=== PATIENT | male | born 1940 | race Caucasian/White ===

== ENCOUNTER 2016-08-01 06:40 | Day surgery (SDC) | payer MEDICARE ==
--- NOTE | ~2016-08-01 | OP ---
Record Of Operation [facility] [address] [place]. [address] NAME: PINEDA CHERRY : 40 [place]US : [place] [facility] [place] [id number] AGE: 75 ADM/REG DATE : 08/01/16 MR#: [id number] REPORT SERV DATE: 08/01/16 DICTATED BY: ADALGISA BELTRÁN DATE: 08/01/16 REPORT STATUS : Draft TRANSCRIBED BY: MODL DATE: 08/01/16 DATE OF PROCEDURE: 08/01/2016 PREOPERATIVE DIAGNOSIS: Bladder cancer, recurrent. POSTOPERATIVE DIAGNOSIS: Bladder cancer, recurrent. PROCEDURE PERFORMED: 1. Transurethral resection of bladder tumor (2 to 5 cm). 2. Intraoperative instillation of mitomycin-C (40 mg in 20 mL). ANESTHESIA: General. SPECIMEN: Bladder tumor from the dome, left lateral wall, right trigone, and prostatic urethra. COMPLICATIONS: None. DRAINS: A 22-Australian three-way Harris catheter. INDICATIONS: Mr. Cherry is a 75-year-old, with some gross hematuria and clot retention about four months ago. Small bladder tumors were resected at the dome. He received induction BCG and for surveillance cystoscopy, which showed two areas of suspicious for recurrence at the dome and left lateral wall. He presents for repeat TURBT with mitomycin instillation. TECHNIQUE: Informed consent was obtained. He was brought to the operating room, general anesthesia was administered. Genitals and perineum were prepped and draped in the lithotomy position. Levaquin was administered perioperatively. Urethra was calibrated to 24-Australian and dilated to 28-Australian. Rigid cystoscopy was performed. The urethra was normal. There was minor papillary changes at the verumontanum as well as with the nonobstructive prostate. Bladder was inspected. There was a 3 cm area of edema and erythema, and small papillary changes at the dome. 4 cm area of erythema and heaped up mucosa at the left lateral wall, as well as 0.5 cm papillary tumor at the right trigone. Other tiny papillary tumors were present on the left lateral wall, midline trigone, and right lateral wall. I removed the cystoscope and placed a 26-Australian resectoscope. Bladder tumor at the dome and left lateral wall were resected. Chips were sent separately. I was able identify the ureteral orifices. The small lesions on the trigone right and left lateral goddard were fulgurated. The 0.5 cm lesion on the right trigone/bladder base was resected. Finally, I resected the small area of papillary changes near the verumontanum. I placed a roller ball. All areas of resection were fulgurated for hemostasis. The resectoscope was removed. I placed a 20-Australian two-way Harris catheter with 15 mL in the balloon. I instilled 40 mg of mitomycin-C diluted in 20 mL of sterile water into the bladder. The Harris catheter was plugged and a B and O suppository was given. He was extubated, taken to recovery room in satisfactory condition for the planned one hour intravesical dwell time for the mitomycin. He will be discharged to home with a Harris catheter for three or four more Record Of Operation [address] [address] NAME: PINEDA CHERRY : 40 [place]US : [place] [facility] [place] PAT#: [id number] AGE: 75 ADM/REG DATE : 08/01/16 MR#: [id number] REPORT SERV DATE: 08/01/16 DICTATED BY: ADALGISA BELTRÁN DATE: 08/01/16 REPORT STATUS : Draft TRANSCRIBED BY: LEAH DATE: 08/01/16 days. [facility]/LEAH Adalgisa Beltrán M.D. / [id number] CC: Samm Sheffield
[~2016-08-01 06:40] MED LIST: ASABAYER PO; ASAEC PO; BROVANA15 MCG INH; BUDESONIDE 1 MG/2 ML INH; CENTRUM PO; DESITIN TOP; FLOMAX4 PO; HCTZ25B PO; HYDROCHLOROT12.5 MG PO; HYDROCHLOROT25 MG PO; KEPPRA500 PO; LETAIRIS10 MG PO; MEGACEUDL PO; MUCINEX600 MG PO; MULTIVIT/MIN PO; NATURA2 OP; P10 PO; PEP20 PO; PRILO PO; PRIN10 PO; PULRESP.5 INH; PYR100B PO; REVATIO20 PO; SPIRIVA INH; ZITH250 PO; ZOCOR20 PO
[2016-08-01 07:31] LABS: BASOPHILS 0.4 %; BASOPHILS ABSOLUTE 0.03 10/3/uL (0.0-0.16); EOSINOPHILS 6.4 %; EOSINOPHILS ABSOLUTE 0.47 10/3/uL (0.0-0.53); HEMATOCRIT 37.7 % (40.0-51.0); HEMOGLOBIN 11.7 g/dL (13.6-17.8); IMMATURE GRANULOCYTES 0.3 %; IMMATURE GRANULOCYTES ABSOLUTE 0.02 10/3/uL (0.0-0.11); LYMPHOCYTES 32.6 %; MANUAL DIFF NO %; MEAN CORPUSCULAR HEMOGLOB 28.1 pg (26.0-34.0); MEAN CORPUSCULAR VOLUME 90.4 fL (80-100); MEAN PLATELET VOLUME 10.1 fL (9.2-13.0); MONOCYTES 8.2 %; NEUTROPHILS 52.1 %; NEUTROPHILS ABSOLUTE 3.84 10/3/uL (2.02-8.40); PLATELET COUNT 191 10/3/uL (150-400); RED CELL COUNT 4.17 10/6/uL (4.7-6.1); WHITE BLOOD CELLS 7.4 10/3/uL (4.5-10.5)
[2016-08-01 07:41] LABS: A/G RATIO 1.4 (0.7-1.9); ALBUMIN 4.1 G/DL (3.5-5.0); ALKALINE PHOSPHATASE 55 U/L (45-117); BUN (BLOOD UREA NITROGEN) 35 MG/DL (6-23); CALCIUM, SERUM 9.6 MG/DL (8.5-10.4); CHLORIDE, SERUM 95 MMOL/L (96-112); CO2 (CARBON DIOXIDE) 39 MMOL/L (24-34); CREATININE 1.18 MG/DL (0.70-1.30); GFR AFRICAN AMERICAN 70 ML/MIN (>=60); GFR NON AFRICAN AMERICAN 60 ML/MIN (>=60); GLOBULIN 2.9 G/DL (2.5-4.1); GLUCOSE, SERUM 107 MG/DL (60-99); POTASSIUM, SERUM 4.6 MMOL/L (3.5-5.3); SGOT(AST) 22 U/L (5-40); SGPT(ALT) 20 U/L (5-65); SODIUM, SERUM 138 MMOL/L (135-148); TOTAL BILIRUBIN 0.4 MG/DL (0-1.2)
== END 2016-08-01 17:40 | disposition home or self-care (01) ==
LOC: SDC 06:40
PROVIDERS: Urology
PROC: 0TBB8ZX Excision of Bladder, Via Natural or Artificial Opening Endoscopic, Diagnostic (ICD-10-PCS; principal; 2016-08-01 07:45)
DX: C67.1 Malignant neoplasm of dome of bladder (principal); C67.2 Malignant neoplasm of lateral wall of bladder; C67.0 Malignant neoplasm of trigone of bladder; I25.10 Atherosclerotic heart disease of native coronary artery without angina pectoris; I10 Essential (primary) hypertension; E78.5 Hyperlipidemia, unspecified; I27.2 Other secondary pulmonary hypertension; Z86.73 Personal history of transient ischemic attack (TIA), and cerebral infarction without residual deficits; Z95.5 Presence of coronary angioplasty implant and graft; Z79.82 Long term (current) use of aspirin; Z79.899 Other long term (current) drug therapy; Z98.890 Other specified postprocedural states
CPT/HCPCS: 80053; 85025; 88305; 88307; 93005; A9270-GY; J1170; J2370; J2405; J3010; J9280